=== PATIENT | male | born 1990 | race African-American/Black ===

== ENCOUNTER 2019-12-12 10:05 | Emergency (ER) | payer MEDICAID ==
[~2019-12-12] VITALS: Ht 172.7 cm; Wt 60.8 kg
[2019-12-12 10:12] VITALS: BP 133/82; Ht 172.7 cm; Wt 60.8 kg
== END 2019-12-12 11:10 | disposition home or self-care (01) ==
LOC: ED 10:05
DX: H10.9 Unspecified conjunctivitis (principal)